=== PATIENT | female | born 1950 | race Caucasian/White ===

== ENCOUNTER → 2016-05-21 | Outpatient (CLI) | payer OTHER ==
[~2016-05-21] MED LIST: COLACE 100MG C100 MG PO; COUMADIN6 MG PO; GLUCOPHAGE 500500 MG PO; GLUCOTROL5 MG PO; LISINOPRIL2.5 MG PO; LOVENOX SYR100 MG/ML SC; METHOTREXATE T2.5 MG PO; NORCO 10-325 T1 EACH PO; PHENERGAN 25 MG25 M1 PO; TOPROL XL 25 MG25 MG PO; TRAZODONE HCL100 MG PO; VITAMIN D50000 UNIT PO
== END ==
LOC: CT 15:30
DX: F17.210 Nicotine dependence, cigarettes, uncomplicated (principal); Z91.041 Radiographic dye allergy status; Z88.5 Allergy status to narcotic agent
CPT/HCPCS: G0297

== ENCOUNTER → 2016-08-31 | Outpatient (CLI) | payer OTHER | LOC: MAMO 10:00 | DX: Z12.31 Encounter for screening mammogram for malignant neoplasm of breast (principal) | CPT/HCPCS: G0202 ==